=== PATIENT | male | born 1975 | race Caucasian/White ===

== ENCOUNTER 2019-03-22 09:58 | Emergency (ER) | payer OTHER ==
[2019-03-22 10:24] VITALS: BP 126/61
--- NOTE | 2019-03-22 10:36 | UC ---
Back Pain HPI - HPI Summary HPI Summary: yesterday, pt was moving a 40# bag of concrete while twisting when he got sudden low back pain. the back pain radiates into his legs, sometimes both but other times R or L. - History of Current Complaint Chief Complaint: UCBackPain Stated Complaint: LOWER BACK PAIN Time Seen by Provider: 03/22/19 10:17 Hx Obtained From: Patient Timing: Constant Pain Intensity: 9 Aggravating Factor(s): Movement Alleviating Factor(s): Nothing Associated Signs And Symptoms: Positive: Other - no saddle anesthesia. Negative : Fever, Weakness, Tingling, Abdominal Pain, Flank Pain, Bladder Incontinence, Bowel Incontinence - Risk Factors AAA Risk Factors: Negative TAD Risk Factors: Negative Cauda Equina Risk Factors: Negative - Allergies/Home Medications Allergies/Adverse Reactions: Allergies Allergy/AdvReac Type Severity Reaction Status Date / Time Penicillins Allergy Swelling Verified 03/22/19 10:25 Of Face,Lips,& Throat PMH/Surg Hx/FS Hx/Imm Hx Previously Healthy: Yes - Surgical History Surgical History: None - Family History Known Family History: Positive: Hypertension - Social History Alcohol Use: Occasionally Substance Use Type: None Smoking Status (MU): Heavy Every Day Tobacco Smoker Type: Cigarettes Amount Used/How Often: i ppd Length of Time of Smoking/Using Tobacco: since age 10 Have You Smoked in the Last Year: Yes Review of Systems All Other Systems Reviewed And Are Negative: Yes Constitutional: Negative: Fever, Chills Cardiovascular: Negative: Chest Pain Gastrointestinal: Negative: Abdominal Pain Genitourinary: Positive: Other - no incontinence Motor: Positive: Decreased ROM - low back Neurological: Negative: Weakness, Numbness Physical Exam Triage Information Reviewed: Yes Appearance: Pain Distress Vital Signs: Initial Vital Signs Temp 97.5 F 03/22/19 10:19 Pulse 76 03/22/19 10:19 Resp 20 03/22/19 10:19 BP 126/61 03/22/19 10:19 Pulse Ox 98 03/22/19 10:19 Vital Signs Reviewed: Yes Eyes: Positive: Conjunctiva Clear Neck: Positive: Supple, Nontender, No Lymphadenopathy, Other: - c-spine non tender. Respiratory: Positive: Lungs clear, Normal breath sounds, No respiratory distress Cardiovascular: Positive: RRR, No Murmur Abdomen Description: Positive: Nontender, No Organomegaly, Soft. Negative: Distended, Guarding, Pulsatile Mass Bowel Sounds: Positive: Present Musculoskeletal: Positive: Other: - Back: no rash. some flattening of lordosis in lumbar region. decreased rom due to low back pain. tender over lumbar region. no saddle anesthesia. negative straight leg raises. sciatic notches are non tender. 5/5 strength, 2+ reflexes and sensation intact x4. slow but steady gait. Neurological: Positive: Alert Psychological: Positive: Age Appropriate Behavior Skin Exam: Normal Skin: Negative: Rashes Diagnostics - Radiology No standard instances Radiology Interpretation Completed By: Radiologist - IMPRESSION: No fracture of the lumbar spine is noted. Back Pain Course/Dx - Differential Dx/Diagnosis Differential Diagnosis/HQI/PQRI: Other - no concern for infection, acute abdomen or cauda equinq. hx c/w lumbar radiculopathy. xray=nad, see report. Provider Diagnosis: Lumbar radiculopathy, acute Discharge - Sign-Out/Discharge Documenting (check all that apply): Patient Departure All imaging exams completed and their final reports reviewed: Yes - Discharge Plan Condition: Stable Disposition: HOME Prescriptions: Cyclobenzaprine TAB* [Flexeril 10 MG TAB*] 10 mg PO TID #10 tab methylPREDNISolone [Medrol Dosepak 4 MG*] 0 mg PO .SEE RICARDO INSTRUCTION #1 tab Patient Education Materials: Lumbar Radiculopathy (ED) Referrals: Kev Manley PA [Primary Care Provider] - (off 03/22-03/26/19. return next scheduled shift or sooner if better.) Additional Instructions: DO NOT TAKE THE FLEXERIL WHILE WORKING, DRIVING OR OPERATING EQUIPMENT. - Billing Disposition and Condition Condition: STABLE Disposition: Home
[2019-03-22] MEDS ORDERED: Ketorolac INJ* 60 MG/2 ML VIAL IM ONE (10:37)
== END 2019-03-22 11:22 | disposition home or self-care (01) ==
LOC: UCCORT 09:58
DX: M54.16 Radiculopathy, lumbar region (principal); F17.210 Nicotine dependence, cigarettes, uncomplicated; Z88.0 Allergy status to penicillin
CPT/HCPCS: 72100; 96372; 99212; G0463; J1885